=== PATIENT | male | born 1965 | race Caucasian/White ===

== ENCOUNTER 2019-04-01 22:47 | Emergency (ER) | payer OTHER ==
[~2019-04-01] VITALS: Ht 172.7 cm; Wt 101.6 kg
[2019-04-01 22:57] VITALS: Ht 172.7 cm; Wt 101.6 kg
[2019-04-02 02:27] VITALS: BP 120/82
== END 2019-04-02 02:27 | disposition home or self-care (01) ==
LOC: ED 22:47
DX: J40 Bronchitis, not specified as acute or chronic (principal)
CPT/HCPCS: J7613; J7644

== ENCOUNTER 2019-11-12 22:10 | Emergency (ER) | payer MEDICAID ==
[~2019-11-12] VITALS: Ht 172.7 cm; Wt 99.8 kg
[2019-11-12 22:14] VITALS: BP 113/88
== END 2019-11-12 23:13 | disposition home or self-care (01) ==
LOC: ED 22:10
DX: U07.1 COVID-19 (principal); I10 Essential (primary) hypertension